=== PATIENT | female | born 1990 | race Caucasian/White ===

== ENCOUNTER 2017-10-23 17:12 | Emergency (ER) | payer OTHER ==
[2017-10-23 17:23] VITALS: BP 118/84
[2017-10-23] MEDS ORDERED: Cephalexin CAP* 500 MG PO ONE (17:41)
--- NOTE | 2017-10-23 17:50 | UC ---
Lower Extremity/Ankle HPI - HPI Summary HPI Summary: While outside barefoot yesterday, pt stepped on a thorny part of a plant and pulled something back out of her R foot on bottom of 4th toe. Today the toe is red, swollen, itchy, and uncomfortable. Has redness spreading onto the top part of her foot. States Tdap UTD. - History of Current Complaint Chief Complaint: UCLowerExtremity Stated Complaint: RIGHT FOOT COMPLAINT Time Seen by Provider: 10/23/17 17:27 Hx Obtained From: Patient Hx Last Menstrual Period: 2 WEEKS ?: No Onset/Duration: Sudden Onset Severity Initially: Mild Severity Currently: Moderate Pain Intensity: 7 Aggravating Factor(s): Standing, Ambulation Alleviating Factor(s): Rest Able to Bear Weight: Yes - Allergies/Home Medications Allergies/Adverse Reactions: Allergies Allergy/AdvReac Type Severity Reaction Status Date / Time No Known Allergies Allergy Verified 10/23/17 17:24 PMH/Surg Hx/FS Hx/Imm Hx Previously Healthy: Yes - Surgical History Surgical History: None - Social History Alcohol Use: None Substance Use Type: None Smoking Status (MU): Never Smoked Tobacco - Immunization History Hx Tetanus, Diphtheria Vaccination: Yes Review of Systems Constitutional: Negative Skin: Other - redness R foot Eyes: Negative ENT: Negative Respiratory: Negative Cardiovascular: Negative Gastrointestinal: Negative Genitourinary: Negative Motor: Negative Neurovascular: Negative Musculoskeletal: Negative Neurological: Negative Psychological: Negative Is Patient Immunocompromised?: No All Other Systems Reviewed And Are Negative: Yes Physical Exam Triage Information Reviewed: Yes Appearance: Well-Appearing, No Pain Distress, Well-Nourished Vital Signs: Initial Vital Signs Temp 99.3 F 10/23/17 17:18 Pulse 80 10/23/17 17:18 Resp 16 10/23/17 17:18 BP 118/84 10/23/17 17:18 Pulse Ox 100 10/23/17 17:18 Vital Signs Reviewed: Yes Eye Exam: Normal Eyes: Positive: Conjunctiva Clear ENT Exam: Normal ENT: Positive: Normal ENT inspection, Hearing grossly normal, Pharynx normal, TMs normal Neck exam: Normal Neck: Positive: Supple Respiratory Exam: Normal Respiratory: Positive: Chest non-tender, Lungs clear, Normal breath sounds, No respiratory distress, No accessory muscle use Cardiovascular Exam: Normal Cardiovascular: Positive: RRR, No Murmur Musculoskeletal Exam: Other - swelling, redness on L 4th toe, swelling onto dorsum of foot. Musculoskeletal: Positive: Strength Intact, ROM Intact Neurological Exam: Normal Neurological: Positive: Alert Psychological Exam: Normal Skin Exam: Other - Unble to see PW on sole of R foot, no FB noted. Lower Extremity Course/Dx - Differential Dx/Diagnosis Differential Diagnosis/HQI/PQRI: Cellulitis, Foreign Body, Infection, Puncture Wound Provider Diagnoses: R foot PW. R foot cellulitis Discharge - Sign-Out/Discharge Documenting (check all that apply): Discharge/Admit/Transfer - Discharge Plan Condition: Stable Disposition: HOME Prescriptions: Cephalexin CAP* [Keflex 500 CAP*] 500 mg PO QID #26 cap Patient Education Materials: Cellulitis (ED), Soft Tissue Foreign Body (ED) Referrals: Tonia Smallwood NP [Primary Care Provider] - 3 Days Additional Instructions: As we discussed, the possible small foreign body you describe is likely to be walled off and digested within your tissues. If your infection does not respond to antibiotics or if it keeps coming back you may need to see a surgeon for consultation. Because thorns and most biologic material doesn't show up on x- ray there is no way for us to tell for sure today. Use warm soaks and elevation to help with the infection. If you have fever, marked worsening, or streaking up the leg, please get seen again right away. - Billing Disposition and Condition Condition: STABLE Disposition: Home
== END 2017-10-23 17:50 | disposition home or self-care (01) ==
LOC: UCEAST 17:12
DX: S91.331A Puncture wound without foreign body, right foot, initial encounter (principal); L03.115 Cellulitis of right lower limb; W60.XXXA Contact with nonvenomous plant thorns and spines and sharp leaves, initial encounter; Y93.9 Activity, unspecified; Y92.89 Other specified places as the place of occurrence of the external cause
CPT/HCPCS: 99212; A9270-GY; G0463

== ENCOUNTER 2021-01-26 11:04 | Inpatient (IN) ==
[2021-01-26 12:55] LABS: Urine Benzodiazepine Screen None Detected (None Detect); Urine Cannabinoids Screen None Detected (None Detect); Urine Opiates Screen None Detected (None Detect)
[2021-01-26 13:01] LABS: Urine Appearance Cloudy; Urine Bilirubin Negative (Negative); Urine Blood 1+ (Negative); Urine Color Yellow; Urine Glucose Negative (Negative); Urine Ketones Negative (Negative); Urine Nitrite Negative (Negative); Urine Protein 1+(30 mg/dL) (Negative); Urine Specific Gravity 1.012 (1.002-1.030); Urine Urobilinogen Negative (Negative)
[2021-01-26 13:13] LABS: Urine Bacteria Absent (Absent); Urine Red Blood Cell Trace(0-2/hpf) (Absent); Urine Squamous Epithelial Cell Present (Absent); Urine White Blood Cell Trace(0-5/hpf) (Absent)
[2021-01-26] MEDS ORDERED: Calcium Carb (TUMS) 500 mg CHEW TAB ONE (15:31)
[2021-01-26] MEDS ORDERED: Dibucaine 1% OINT 28.35 GM TUBE PR PRN (17:48)
[2021-01-26] MEDS ORDERED: Oxytocin 10 UNITS/ML 1 ML VIAL IM ONE (17:48)
[2021-01-26] MEDS ORDERED: witch hazeL 43% TOP.SOLN 200 ML PHA COMPOUND TOPICAL PRN (17:51)
[2021-01-27] MEDS ORDERED: Calcium Carb (TUMS) 500 mg CHEW TAB PO PRN (04:52)
[2021-01-27 05:16] LABS: ABS Basophils 0.1 10^3/ul (0-0.2); ABS Lymphocytes 3.7 10^3/ul (1.0-4.8); ABS Monocytes 1.2 10^3/ul (0-0.8); ABS Neutrophils 12.5 10^3/ul (1.5-7.7); Eosinophil % 0.2 %; Hematocrit 32 % (35-47); Hemoglobin 10.8 g/dL (12.0-16.0); Lymphocyte % 21.1 %; Mean Corpuscular HGB Conc 34 g/dL (31-36); Mean Corpuscular Hemoglobin 30 pg (27-31); Mean Corpuscular Volume 89 fL (80-97); Mean Platelet Volume 9.8 fL (7.4-10.4); Nucleated Red Blood Cells % 0.1; Platelet Count 172 10^3/uL (150-450); Red Blood Count 3.57 10^6 /uL (3.70-4.87); Red Cell Distribution Width 14 % (10-15); White Blood Count 17.6 10^3/uL (3.5-10.8)
[2021-01-27] MEDS ORDERED: Oxytocin in LR 20 UNITS/1,000 ML BAG IVPB SCH (05:30)
[2021-01-29 08:08] VITALS: BP 114/61
== END 2021-01-29 12:32 | disposition home or self-care (01) | DRG 807 ==
LOC: MCHOBOUT 11:04 → MCHOB 11:44
PROVIDERS: ADMIT Midwife; ATTEND Midwife